=== PATIENT | male | born 1925 | race Caucasian/White ===

== ENCOUNTER 2016-12-25 09:26 | Inpatient (IN) | payer MEDICARE ==
[~2016-12-25] VITALS: Ht 165.1 cm; Wt 84.4 kg
[~2016-12-25 09:26] MED LIST: ALDACTONE25 MG PO; ARICEPT10 MG PO; ARTIFICIAL TEA3.5 G2 LEFT EYE; ASPIRIN325 MG PO; BACTROBAN CREAM15 GM TP; CYMBALTA20 MG PO; CYMBALTA30 MG PO; GLUCAGON1 MG/KIT IM; GLUCAGON1 MG/KIT SQ; HUMALOG 30100 UNITS/ SC; HUMULIN R100 U/ML SC; IMDUR30 MG PO; JANUVIA50 MG PO; LANTUS SOL100 UNIT/1 SC; LINZESS145 MCG PO; LIPITOR10 MG PO; LISINOPRIL2.5 MG PO; LOPRESSOR25 MG PO; NORCO 5/325 TAB1 TA1 PO; SENNA PLUS TA1 UDTAB PO; SENOKOT-S TABLE1 TAB PO; SEROQUEL50 MG PO; VITAMIN D5000 UNIT PO; ZYPREXA2.5 MG PO
[2016-12-25 10:09] LABS: BASOPHILS 0.1 % (0-2); EOSINOPHILS 3.6 % (0-7); HEMATOCRIT 40.5 % (42.0-54.0); HEMOGLOBIN 13.3 g/dL (13.5-17.5); IMMATURE GRANULOCYTES 0.1 % (0-5); LYMPHOCYTES 13.4 % (15-50); MCHC 32.8 g/dL (31.0-37.0); MCV 91.2 fL (80.0-100.0); MEAN PLATELET VOLUME 11.3 fL (7.4-10.4); MONOCYTES 9.5 % (2-11); NEUTROPHILS 73.3 % (40-80); PLATELET COUNT 94 10x3/uL (130-400); RBC 4.44 10x6/uL (4.20-6.10); RDW 14.5 % (11.5-14.5); WBC 6.9 10x3/uL (4.8-10.8)
[2016-12-25 10:31] LABS: ALBUMIN 3.3 g/dL (3.4-5.0); ANION GAP 11.6 mmol/L (8-16); BILIRUBIN - TOTAL 0.53 mg/dL (0.2-1.3); CALCIUM 8.7 mg/dL (8.5-10.1); CARBON DIOXIDE 27.5 mmol/L (21.0-32.0); CREATININE - SERUM 1.4 mg/dL (0.6-1.3); POTASSIUM - SERUM 4.1 mmol/L (3.5-5.1); PROTEIN - SERUM 6.8 g/dL (6.4-8.2)
[2016-12-25 10:52] LABS: UDS - AMPHET NEGATIVE QUAL (NEGATIVE); UDS - BARB NEGATIVE QUAL (NEGATIVE); UDS - BENZO POSITIVE QUAL (NEGATIVE); UDS - COCAINE NEGATIVE QUAL (NEGATIVE); UDS - METH NEGATIVE QUAL (NEGATIVE); UDS - OPIATE NEGATIVE QUAL (NEGATIVE); UDS - PCP NEGATIVE QUAL (NEGATIVE); UDS - THC NEGATIVE QUAL (NEGATIVE)
[2016-12-25 10:58] LABS: APPEARANCE CLEAR (CLEAR); BILIRUBIN NEGATIVE (NEGATIVE); COLOR YELLOW (YELLOW); GLUCOSE 100 mg/dL (NEGATIVE); KETONE NEGATIVE (NEGATIVE); LEUKOCYTE ESTERASE NEGATIVE (NEGATIVE); NITRITE NEGATIVE (NEGATIVE); PROTEIN NEGATIVE (NEGATIVE); SPECIFIC GRAVITY 1.015 (1.005-1.020); UROBILINOGEN NORMAL (NORMAL)
[2016-12-25 11:43] LABS: PLATELET ESTIMATE DECREASED
[2016-12-25 13:00] VITALS: BP 118/44
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
[2016-12-25] MEDS ORDERED: ASPIRIN325 MG PO (13:38)
[2016-12-25] MEDS ORDERED: VITAMIN D31000 UNI2 PO (13:40)
[2016-12-25 13:59] LABS: CHOL - HDL RATIO 2.7 ratio (2.3-4.9); HEMOGLOBIN A1C 8.1 % (4.8-6.0); LDL-HDL RATIO 1.2 ratio (1.5-3.5)
[2016-12-25 17:55] VITALS: BP 118/44; BMI 31.0
[2016-12-25 20:00] VITALS: BP 105/54
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
[2016-12-26 09:53] VITALS: BP 113/78
[2016-12-26 10:54] VITALS: BP 113/79
--- NOTE | 2016-12-26 15:56 | NUR ---
Received this am, communication via writing, smiling and pleasant. Alert and oriented to name, does read lips and follows instructions via demonstration and attempts at sign language. Administer medications and monitor compliance. Redirect for any inappropriate behavior. Ensure communication to express needs, monitor safety. Compliant with medications. No aggression or inappropriate behavior. Calm and cooperative with care, making needs known via sign language and gestures and answering written questions. Needs met, safety maintained. Continue plan of care.
[2016-12-26 19:11] VITALS: BP 103/57
--- NOTE | 2016-12-26 19:34 | NUR ---
RECEIVED IN DAYROOM. SITTING IN WHEELCHAIR WITH PEERS AT HIS SIDE.. CALM AND COOPERATIVE WITH CARE AND ASSESSMENTS. NO SIGNS OF AGGRESSION. ENCOURAGE TO EXPRESS NEEDS BY WRITING. SITTING QUIETLY IN HALLWAY. CONTINUE PLAN OF CARE
--- NOTE | 2016-12-27 08:00 | NUR ---
B) Received in dining room for b'fast, alert, appetite good, cooperative with staff, compliant with meds, no aggression noted. I) Admin medications, music therapy provided, discussed goals of having no aggression. R) Compliant with meds, no s/s of adverse reaction noted. P) Cont plan of care including meds and group therapy.
[2016-12-27 08:41] VITALS: BP 162/95
--- NOTE | 2016-12-27 09:00 | NUR ---
Pt deaf and mute. Services for the hearing impaired were offered to pt. Pt refused services, preferring to communicate with gestures and signing. Able to communicate basic needs without difficulty.
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
[2016-12-27 10:47] VITALS: Ht 165.1 cm; Wt 84.4 kg
[2016-12-27 19:24] VITALS: BP 117/54
--- NOTE | 2016-12-27 22:40 | NUR ---
Patient in room frequently yells out during sleep. He was complaint with medication and encouraged to use writing for needs. Patient is non-aggressive. No needs express. continue to monitor
--- NOTE | 2016-12-28 06:01 | PN ---
PATIENT:SEBASTIAN MELGAR MEDICAL RECORD: [id number] LOCATION:DAVINA Luu ADMISSION DATE: 12/25/16 PROGRESS NOTE DATE OF SERVICE: 12/27/2016 SUBJECTIVE: No new complaint has been registered. OBJECTIVE: The patient has been cooperative. He is eating well. No combativeness. He is taking his medications as prescribed. On exam, mood is euthymic. Affect is bland. The patient is mute. Content of thought negative for apparent overt psychosis. No change in sensorium. ASSESSMENT: No change in diagnosis. PLAN: 1. Maintain current medications. 2. Continue supportive therapy. TRANSINT:[id number] Voice Confirmation ID: [id number] DOCUMENT ID: [id number] MYRIAM KNUTSON III, MD at 0601 CC: [id number] DICTATION DATE: 12/27/161120 GROUP INSURANCE SPECIAL AGENT: 12/27/16 1829 ADM IN [facility] [address] [place] [address]
--- NOTE | 2016-12-28 07:12 | NUR ---
staff continue to offer communication plus to pt but he refuses. he prefers to write down his words or use gestures.
[2016-12-28 12:35] VITALS: BP 95/67
--- NOTE | 2016-12-28 13:32 | NUR ---
PT C/O TIREDNESS AND SLEPT THROUGH GROUPS WITH MINIMAL PARTICIPATION. NO AGGRESSION NOTED. PT CONTINUES TO REFUSE COMMUNICATION AIDES BUT HE DOES WRITE DOWN WHAT HE NEEDS. NO SEXUAL INAPPROPRIATENESS NOTED. FALL PRECAUTIONS MAINTAINED. REED PAD IN PLACE AND AUDIBLE. MEDICATIONS GIVEN ORDERED. HELD BP MEDICATIONS DUE TO LOW BP. REVIEWED THIS WITH DR. AYALA. ORDER TO HOLD MEDICATIONS GIVEN. WILL CONTINUE TO MONITOR AND CONTINUE WITH PLAN OF CARE.
--- NOTE | 2016-12-28 16:47 | NUR ---
FSBS IS 203, HE RECEIVED 3 UNITS OF REGULAR INSULIN.
[2016-12-28 19:24] VITALS: BP 129/53
--- NOTE | 2016-12-28 22:20 | NUR ---
Patient in dayroom resting. Compliant with medication. no aggression or sexual in appropriateness. Panacea alarm activated. Continue to monitor
--- NOTE | 2016-12-29 11:12 | NUR ---
ORIENTED TO PERSON ONLY. NO AGGRESSION NOTED. DENIES SI. PT CONTINUES TO PREFER TO USE ALTERNATIVE WAYS OF COMMUNICATION SUCH WRITING THINGS DOWN AND GESTURES WITH HIS HANDS. NEEDS ARE EASILY KNOWN BY STAFF WITH THIS WAY OF COMMUNICATION. MEDICATIONS GIVEN ORDERED. POSITIVE REINFORCEMENT GIVEN TO PT FOR PARTICIPATION IN GROUPS. FALL PRECAUTIONS MAINTAINED. REED PAD IN PLACE. WILL CONTINUE TO MONITOR AND CONTINUE WITH PLAN OF CARE.
[2016-12-29 11:19] VITALS: BP 138/70
--- NOTE | 2016-12-29 14:54 | NUR ---
Nutrition follow-up: Diet: Consistent CHO PO intake ~95% of meals Labs reviewed RDN following.
[2016-12-29 19:16] VITALS: BP 100/79
--- NOTE | 2016-12-30 01:08 | NUR ---
B) Recieved patient laying in bed, alert and oriented to self, patient is mute, communicates by gesturing, patient able to make needs known, I) Administered perscribed medications, monitored for falls and safety, R) Medication compliant, resting now quietly in bed, P) Continue plan of care.
[2016-12-30 10:45] VITALS: BP 122/55
--- NOTE | 2016-12-30 11:17 | PN ---
PATIENT:SEBASTIAN MELGAR MEDICAL RECORD: [id number] LOCATION:DAVINA Luu ADMISSION DATE: 12/25/16 PROGRESS NOTE DATE OF SERVICE: 12/29/2016 SUBJECTIVE: The patient's case was discussed with staff. He has no new complaint. OBJECTIVE: The patient denies intent to harm himself or others. He does tolerate his medicines well. Eye contact is fair. ASSESSMENT: No change in diagnoses. PLAN: Supportive and educational interventions were made. Halfway prognosis is guarded. The patient is showing significant improvement and I would anticipate he can reasonably be discharged back to the senior living after the weekend if this level of improvement is maintained. TRANSINT:[id number] Voice Confirmation ID: [id number] DOCUMENT ID: [id number] JORDANA GAINES MD at 1117 CC: [id number] DICTATION DATE: 12/29/16 1200 SERVICE ELECTRICIAN: 12/29/16 2309 ADM IN [facility] [address] [place] [address]
--- NOTE | 2016-12-30 17:35 | NUR ---
PATIENT HAS COUGHED OFF AND ON ALL DAY.
[2016-12-30 19:51] VITALS: BP 102/63
--- NOTE | 2016-12-30 21:26 | NUR ---
B) Recieved patient in wheel chair in the hallway, alert and oriented to self, calm and friendly, cooperative with care, I) Administered perscribed medications, monitored for falls and safety, R) Medication compliant, resting now in bed eyes closed, P) Continue plan of care.
[2016-12-31 07:00] VITALS: BP 144/75
--- NOTE | 2016-12-31 11:01 | NUR ---
Patient in hallway. Oriented to self, expressing needs with gestures. Cooperative with medication, calm and pleasant. No aggression at this time. Continue to monitor.
--- NOTE | 2016-12-31 17:21 | NUR ---
Patient is leaning on his left side, complaints of shoulder pain, 650 mg of tylenol given. Tried to reposition, patient yells out in pain. continue to monitor.
--- NOTE | 2016-12-31 20:03 | NUR ---
RECEIVED IN DAYROOM. SITTING IN RECLINER WITH EYES CLOSED. CALM AND COOPERATIVE WITH CARE AND ASSESSMENT. NO SIGNS OF AGGRESSION. ENCOURAGE TO EXPRESS NEEDS. CONTINUES TO REST EYES CLOSED AT THIS TIME. CONTINUE PLAN OF CARE
[2016-12-31 21:00] VITALS: BP 110/56
[2016-12-31 21:24] VITALS: BP 88/49
--- NOTE | 2017-01-01 09:10 | NUR ---
B,) Alert and cooperative with care, communication via writing, gestures and reading lips. Indicated no to any pain and gestured that he was ready to get in chair. I.) Administer medications and monitor compliance, assure means of communication due to deaf/mute, redirect for any inappropriate behavior. Provide one on one communication via writing to express needs. Monitor safety. R.) Compliant with medications, communication via writing, able to reply yes/no to questions, able to gesture some needs, fluids encouraged, B/P within normal range this am. Calm and cooperative with no aggression. Self propels in W/C, chair alarm in place, patient has attempted twice to go to bathroom independetly. Communicated to him to indicate to staff to assist him to bathroom. Communicated one on one with director of plant operations via writing and reading lips. Pleasant and smiling. Has dry hacky cough. Vital signs stable. Safety maintained. P.) Continue plan of care.
[2017-01-01 10:08] VITALS: BP 155/76
--- NOTE | 2017-01-01 11:37 | PN ---
PATIENT:SEBASTIAN MELGAR MEDICAL RECORD: [id number] LOCATION:[facility]VINA Luu ADMISSION DATE: 12/25/16 PROGRESS NOTE DATE OF SERVICE: 12/28/2016 SUBJECTIVE: No new complaint noted. OBJECTIVE: The patient is somewhat drowsy. Blood pressure medicines were held earlier today. Aside from that, he has done very well. No combativeness at all. No threatening behavior noted. On exam, mood is euthymic. Affect pleasant. Speech is mute. Content of thought negative for perceived psychotic symptoms. Sensorium shows no change. ASSESSMENT: No change in diagnosis. PLAN: 1. Reduce clonazepam to 0.25 mg t.i.d. 2. Continue other meds. 3. Continue supportive therapy. TRANSINT:[id number] Voice Confirmation ID: [id number] DOCUMENT ID: [id number] MYRIAM KNUTSON III, MD at 1137 CC: [id number] DICTATION DATE: 12/28/16 1118 ACCOUNT DEVELOPMENT MANAGER: 12/28/162037 ADM IN [place] [id number] [place] [id number]
[2017-01-01 19:15] VITALS: BP 93/46
--- NOTE | 2017-01-01 19:34 | NUR ---
RECEIVED IN BEDROOM. LAYING IN BED WITH EYES CLOSED. RESPONDS TO VOICE. CALM AND COOPERATIVE WITH CARE AND ASSESSMENTS. NO SIGNS OF AGGRESSION. ENCOURAGE TO EXPRESS NEEDS ON PAPER. CONTINUES TO REST QUIETLY. CONTINUE PLAN OF CARE
[2017-01-02 07:58] VITALS: BP 105/52
--- NOTE | 2017-01-02 08:49 | PN ---
PATIENT:SEBASTIAN MELGAR MEDICAL RECORD: [id number] LOCATION:RachelCLARENCEAshu SerranoJair ADMISSION DATE: 12/25/16 PROGRESS NOTE DATE OF SERVICE: 01/01/2017 SUBJECTIVE: No new complaint. OBJECTIVE: The patient has been doing well in terms of behavior. His blood sugars continue to fluctuate as does his blood pressure. Dr. Flores is monitoring this and medication adjustments are being made. On exam, mood pleasant. Affect bland. Speech is mute. Content of thought unchanged. Sensorium unchanged. ASSESSMENT: No change in diagnosis. PLAN: 1. Maintain all current treatment modalities. 2. Anticipate return to the skilled nursing within the next few days. TRANSINT:[id number] Voice Confirmation ID: [id number] DOCUMENT ID: [id number] MYRIAM KNUTSON III, MD at 0849 CC: [id number] DICTATION DATE: 01/01/17 1136 HAT BLOCK BENCH HAND: 01/01/17 1239 ADM IN [place] [id number] [place] [id number]
--- NOTE | 2017-01-02 10:29 | NUR ---
B.) Received this am lying in bed, stella is deaf/mute responds to written yes/no questions, in good mood, smiling and is not having any pain, is ready to get out of bed and dressed. I.) Administer medications and monitor compliance, assure appropriate communication to meet patient needs. Assess for any signs and symptoms of aggression , redirect for any inappropriate behavior. Monitor environment for safety. R.) Compliant with medications. Communicates effective via written yes/no questions, reading lips and gestures. Continues with dry hacky cough and runny nose, lungs clear. Blood pressure low this am, fluids encouraged and accepted. Calm and cooperative with no aggression. Safety maintained. P.) Continue plan of care.
[2017-01-02 19:30] VITALS: BP 119/54
--- NOTE | 2017-01-02 19:38 | NUR ---
RECEIVED IN DAYROOM. SITTING IN WHEELCHAIR. USES HANDS TO MOTIOON FOR THINGS AND TO EXPERSS HIMSELF. CALM AND COOPERATIVE WITH CARE AND ASSESSMENTS. NO SIGNS OF AGGRESSION. ENCOURAGE TO EXPRESS NEEDS. CONTINUES TO SIT QUIETLY. CONTINUE PLAN OF CARE
--- NOTE | 2017-01-02 21:19 | PN ---
PATIENT:SEBASTIAN MELGAR MEDICAL RECORD: [id number] LOCATION:DAVINA Luu ADMISSION DATE: 12/25/16 PROGRESS NOTE DATE OF SERVICE: 01/02/2017 SUBJECTIVE: No new complaint. OBJECTIVE: The patient continues to have episodic hypotension. We will review medications. Blood sugar is stabilizing to some degree. From a behavioral standpoint, the patient has done well, no aggressiveness noted. On exam, mood appears pleasant and euthymic. Affect is bland. Speech is mute. Content of thought, apparently negative for evidence of psychosis. Sensorium shows no change. ASSESSMENT: No change in diagnosis. PLAN: 1. We will review medications. 2. Continue supportive therapy. 3. Discharge when medically stable. TRANSINT:[id number] Voice Confirmation ID: [id number] DOCUMENT ID: [id number] MYRIAM KNUTSON III, MD at 2119 CC: [id number] DICTATION DATE: 01/02/17 1039 SAMPLE CHECKER: 01/02/17 1253 ADM IN [place] [id number] [place] [address]
[2017-01-03 08:54] VITALS: BP 118/61
--- NOTE | 2017-01-03 11:16 | NUR ---
B) PATIENT IS AWAKE AND ALERT, HE IS PLEASANT, SELF PROPELS IN HIS W/C. HE HAS NOT SHOWN ANY AGGRESSION OR AGITATION TODAY. I) PROVIDE PRESCRIBED MEDS. R) PATIENT IS COMPLIANT WITH MEDS. P) CONTINUE PLAN OF CARE.
[2017-01-03 19:30] VITALS: BP 105/53
--- NOTE | 2017-01-03 20:51 | PN ---
PATIENT:SEBASTIAN MELGAR MEDICAL RECORD: [id number] LOCATION:DAVINA Luu ADMISSION DATE: 12/25/16 PROGRESS NOTE DATE OF SERVICE: 01/03/2017 SUBJECTIVE: No new complaint. OBJECTIVE: The patient slept somewhat poorly last night, but otherwise, no new problems. He does have some minor upper respiratory difficulties. On exam, mood is pleasant and euthymic. Affect is bland. Speech is terse. Content of thought is apparently unchanged. Sensorium is unchanged. ASSESSMENT: No change in diagnosis. PLAN: 1. Continue treatment per Dr. Flores. 2. Maintain current antidepressant treatment. TRANSINT:[id number] Voice Confirmation ID: [id number] DOCUMENT ID: [id number] MYRIAM KNUTSON III, MD at 2051 CC: [id number] DICTATION DATE: 01/03/17 1159 SUPERVISOR ELECTRON TUBE PROCESSING: 01/03/17 1346 ADM IN [facility] [address] [place] [address]
--- NOTE | 2017-01-04 02:00 | NUR ---
B) Recieved patient in the hallway, alert and oriented to self, patient is deaf and mute but lets his needs be known by gestures and grunts, I) Admministered perscribed medications, monitored for safety, R) Medication compliant, no aggression this shift, P) Continue plan of care.
--- NOTE | 2017-01-04 09:15 | NUR ---
B) PATIENT IS PLEASANT, HE HAS NOT SHOWN ANY AGGRESSION OR ANY INAPPROPRIATE BEHAVIOR, HE DOES TRY TO COMMUNICATE, HE KNOWS SIGN LANGUAGE. HE SELF PROPELS IN A W/C. I) PROVIDE PRESCRIBED MEDS. R) PROVIDE PRESCRIBED MEDS. P) CONTINUE PLAN OF CARE.
[2017-01-04 10:27] VITALS: BP 110/64
--- NOTE | 2017-01-04 14:50 | NUR ---
Nutrition follow-up: Diet: ADA consistent CHO PO intake 100% of most meals Labs reviewed No new wt to assess +BM RDN following.
[2017-01-04 21:18] VITALS: BP 100/54
--- NOTE | 2017-01-05 02:04 | NUR ---
B) Recieved patient in the day room alert and oriented to self, calm and cooperative, no aggressive bebaviors or outburst noted, I) Administered perscribed medications, monitored for falls and safety, R) Medication compliant, P) continue plan of care.
[2017-01-05 08:24] VITALS: BP 147/69
--- NOTE | 2017-01-05 09:11 | PN ---
PATIENT:SEBASTIAN MELGAR MEDICAL RECORD: [id number] LOCATION:DAVINA Luu ADMISSION DATE: 12/25/16 PROGRESS NOTE DATE OF SERVICE: 01/04/2017 SUBJECTIVE: No new complaint. OBJECTIVE: The patient has been tolerating medication reasonably well. Affect is bland. Mood is euthymic. Speech is mute. Content of thought is unchanged. Sensorium unchanged. ASSESSMENT: No change in diagnosis. PLAN: 1. Continue current medications. 2. Continue supportive therapy. TRANSINT:[id number] Voice Confirmation ID: [id number] DOCUMENT ID: [id number] MYRIAM KNUTSON III, MD at 0911 CC: [id number] DICTATION DATE: 01/04/17 1046 CORPORATE TRAFFIC MANAGER: 01/04/17 1148 ADM IN [place] [id number] [place] [id number]
--- NOTE | 2017-01-05 17:29 | NUR ---
B) PATIENT IS AWAKE AND ALERT, HE IS COUGHING AND HIS NOSE IS RUNNING. HE HAS BEEN PLEASANT, NO AGGRESSION SEEN. PATIENT SELF PROPELS IN W/C, AND TRANSFERS WITH STAFF ASSIST. I) PROVIDE PRESCRIBED MEDS. R) PATIENT IS COMPLIANT WITH MEDS. P) CONTINUE PLAN OF CARE.
[2017-01-05 19:30] VITALS: BP 110/57
--- NOTE | 2017-01-05 20:00 | NUR ---
RECEIVED IN HALLWAY SSITTING IN W/C. MAKES HAND MOTIONS, BUT NON-VERBAL COMMUNICATION. CALM AND COOPERATIVE WITH CARE AND ASSESSMENT. VSS. MEDICATION COMPLIANT. ENCOURAGE TO EXPRESS FEELINGS AND NEEDS. CONTINUES TO SIT QUIETLY IN CHAIR. [id number] PLAN OF CARE AND MONITOR FOR SAFETY.
[2017-01-06 07:35] VITALS: BP 117/61
--- NOTE | 2017-01-06 19:22 | NUR ---
PT IS RECEIVED IN CHAIR IN FRONT OF NURSE STATION. PT IS ALERT AND ORIENTED TO SELF ONLY. PT DENIES PAIN. NO HALLUCINATIONS ARE NOTED OR REPORTED. NO AGGRESSION IS NOTED. PT IS COOPERATIVE WITH STAFF AND IS COMPLIANT WITH MED'S AND CARE. SAFETY MEASURES ARE IMPLEMENTED. CONTINUE WITH PLAN OF CARE. WILL CONTINUE TO MONITOR.
[2017-01-06 19:30] VITALS: BP 109/76
--- NOTE | 2017-01-07 03:10 | NUR ---
B) Recieved patient sitting in a wheelchair in the day room, alert and oriented to self, no behaviors noted, patient is deaf/mute and communicates by guesture and writing, I) Administered perscribed medications, monitored for falls and safety R) Medication compliant, resting quietly P) Continue plan of care, continue to monitor.
--- NOTE | 2017-01-07 14:22 | PN ---
PATIENT:SEBASTIAN MELGAR MEDICAL RECORD: [id number] LOCATION:DAVINA RamosAneesh112 ADMISSION DATE: 12/25/16 PROGRESS NOTE DATE OF SERVICE: 01/05/2017 SUBJECTIVE: No new complaint noted. OBJECTIVE: The patient remains cooperative. Mood is euthymic. Affect is bland. Speech is mute. Content of thought is unchanged. Sensorium unchanged. ASSESSMENT: No change in diagnosis. PLAN: 1. Maintain current medication. 2. Continue supportive therapy. TRANSINT:[id number] Voice Confirmation ID: [id number] DOCUMENT ID: [id number] MYRIAM KNUTSON III, MD at 1422 CC: [id number] DICTATION DATE: 01/05/17 1137 OVEN TENDER BAGELS: 01/05/17 1909 ADM IN [place] [id number] [place] [address]
--- NOTE | 2017-01-07 18:26 | NUR ---
Patient in day room in wheelchair. He has been joking with staff. Pleasant and compliant with medication. Patient has not been combative. Patient has been encouraged and is using gestures to express his needs. Continue to monitor, continue plan of care.
[2017-01-07 19:30] VITALS: BP 108/51
--- NOTE | 2017-01-07 22:56 | NUR ---
RECEIVED IN DAYROOM. SITTING IN WHEELCHAIR. CALM AND COOPERATIVE WITH CARE AND ASSESSMENTS. NO SIGNS OF AGGRESSION. ENCOURAGE TO EXPRESS NEEDS BY WRITING. RESTING EYES CLOSED AT THIS TIME. CONTINUE PLAN OF CARE
--- NOTE | 2017-01-08 11:02 | NUR ---
Patient in dayroom, happy and gesturing to staff. He is not aggressive, not combative. Patient has been compliant with medication and nursing care. Patient assists with morning hygiene, eats independently and follows commands. Continue to monitor, continue plan of care.
[2017-01-08] MEDS ORDERED: FEXOFENADINE HC60 MG PO (11:19)
[2017-01-08] MEDS ORDERED: ALDACTONE25 MG PO (11:20)
[2017-01-08] MEDS ORDERED: LOPRESSOR25 MG PO (11:20)
[2017-01-08] MEDS ORDERED: LISINOPRIL5 MG PO (11:20)
[2017-01-08] MEDS ORDERED: INVOKANA100 MG PO (11:21)
[2017-01-08] MEDS ORDERED: VITAMIN C250 MG PO (11:22)
--- NOTE | 2017-01-08 19:31 | NUR ---
Patient was discharged to the [facility] via [place] staff. No problems
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
== END 2017-01-08 17:15 | DRG 57 ==
LOC: D.ER 09:26 → D.PSYCH 13:26
PROVIDERS: Emergency Medicine; ADMIT Psychiatry & Neurology Psychiatry
DX: G30.9 Alzheimer's disease, unspecified (principal); F02.81 Dementia in other diseases classified elsewhere, unspecified severity, with behavioral disturbance; I10 Essential (primary) hypertension; E78.5 Hyperlipidemia, unspecified; E11.9 Type 2 diabetes mellitus without complications; H91.3 Deaf nonspeaking, not elsewhere classified; E55.9 Vitamin D deficiency, unspecified; L85.3 Xerosis cutis; Z95.0 Presence of cardiac pacemaker; M25.511 Pain in right shoulder